=== PATIENT | female | born 1970 | race Two or more races ===

== ENCOUNTER 2017-08-01 14:30 | Emergency (ER) | payer SELFPAY ==
[~2017-08-01] VITALS: Ht 167.6 cm; Wt 77.1 kg
[2017-08-01 14:57] VITALS: BP 138/78
[2017-08-01 15:40] VITALS: BP 133/77
[2017-08-01 16:39] VITALS: BP 133/77
--- NOTE | 2017-08-02 00:21 | Emergency Room Report ---
History of Present Illness General Chief Complaint: Abdominal Pain Source: Patient Present Illness HPI Patient is a 47-year-old female who presented after increased abdominal discomfort. Patient reports having the prior history of . She takes she had acute onset of abdominal discomfort while driving. She denied any vomiting. She reported having increased pain to her epigastric area. She denies any fever. Allergies: Uncoded Allergies: PENICILLIN (Allergy, Unknown, 08/01/17) Patient History Past Medical History: see triage record Reviewed Nursing Documentation: PMH: Agreed; PSxH: Agreed Nursing Documentation-PM Past Medical History: No History, Except For Hx Gastrointestinal Problems: Yes - Celiac disease and Crohn's disease Review of Systems All Other Systems: negative except mentioned in HPI Physical Exam Vital Signs Date Time Temp Pulse Resp B/P (MAP) Pulse Ox O2 Delivery O2 Flow Rate FiO2 08/01/17 14:47 98.2 117 18 133/77 97 Room Air 98.2 Sp02 EP Interpretation: reviewed, normal General Appearance: normal inspection, well appearing, no apparent distress, alert, GCS 15 Head: atraumatic ENT: normal ENT inspection, hearing grossly normal, normal voice Neck: normal inspection, full range of motion, supple, no bony tend Respiratory: normal inspection, lungs clear, normal breath sounds, no respiratory distress, no retraction, no wheezing Cardiovascular #1: regular rate, rhythm, no edema Gastrointestinal: normal inspection, non tender, soft, no guarding, hernia - umbilical no bowel noted Genitourinary: no CVA tenderness Musculoskeletal: normal inspection, back normal, normal range of motion Neurologic: normal inspection, alert, oriented x3, responsive, site administrator III-XII nml as tested, motor strength/tone normal, speech normal Psychiatric: normal inspection, judgement/insight normal, mood/affect normal Skin: normal inspection, normal color, no rash Medical Decision Making Diagnostic Impression: Primary Impression: Abdominal pain ER Course Patient presented for abdominal pain. Differential diagnoses included ischemic bowel, appendicitis, perforated viscus, abdominal aortic aneurysm, inferior myocardial infarction, viral gastroenteritis. The patient was examined in emergency department. Patient noted be pain free after short time in emergency department. ppatient was seen and examined and stated she had to urinate. Subsequently eloped without notifying staff. Last Vital Signs Date Time Temp Pulse Resp B/P (MAP) Pulse Ox O2 Delivery O2 Flow Rate FiO2 08/01/17 15:40 98.2 18 133/77 97 Room Air 98.2 08/01/17 14:57 78 Status: improved Disposition: ELOPED Condition: Unknown Referrals: NOT CHOSEN IPA/,REFERRING (PCP) Tyson Hines Aug 02, 2017 00:21
== END 2017-08-01 15:40 | disposition left against medical advice (07) ==
LOC: EMR 15:40
DX: R10.9 Unspecified abdominal pain (principal); Z88.0 Allergy status to penicillin; Z87.19 Personal history of other diseases of the digestive system
CPT/HCPCS: 99282